=== PATIENT | female | born 1955 | race Caucasian/White ===

== ENCOUNTER 2019-12-22 09:57 | Emergency (ER) | payer MEDICARE, MEDICAID, SELFPAY ==
--- NOTE | ~2019-12-22 | XR_ITS ---
XR hip LT 2V w AP pelvis 12/22/2019 11:11 Indication: Status post fall. Hip pain. Procedure: AP view of the pelvis and 2 views left hip Comparison: No prior studies for comparison. Findings: Pelvic rings are intact. No fracture or traumatic malalignment. Sacral foramen are symmetri c. There are degenerative changes of the hips. Impression: 1: Mild osteoarthritis of the hips. Reviewed, dictated and finalized at location B. TURNER Impression: 1: Mild osteoarthritis of the hips.
--- NOTE | ~2019-12-22 | XR_ITS ---
XR hand LT min 3V 12/22/2019 11:11 Indication: Status post fall. Left hand pain. Procedure: 3 views left hand Comparison: No prior studies for comparison. Findings: Mild polyarticular osteoarthritis. Osteopenia. No acute fracture or traumatic malalignment. No focal soft tissue abnormality. No radiopaque foreign bodies. Impression: 1: No acute fracture. Reviewed, dictated and finalized at location B. MACEUTICAL SALES REPRESENTATIVE Impression: 1: No acute fracture.
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
--- NOTE | ~2019-12-22 | CT_ITS ---
EXAMINATION: CT cervical spine wo con DATE: 12/22/2019 10:47 INDICATION: Neck injury. TECHNIQUE: Computed tomography (CT) of the cervical spine was performed without intravenous contrast. Automated exposure control and iterative reconstruction technique were employed. The dose-length pro duct was 351.61 mGy-cm. COMPARISON: Brain MRI 03/28/2011, chest radiograph 10/30/13 FINDINGS: There is mild scarring at the lung apices. There is 5 degrees levocurvature of cervical spi ne. Vertebral body heights are normal. Intervertebral disc heights are normal. There is a chronic 7 m m lytic lesion in C2 vertebral body, likely a hemangioma. At C6 on the left, there is a 2.6 x 1.8 cm mass with associated expansile lytic change of the vertebral body, left pedicle, and left posterior e lements. The following disc levels are specifically discussed: C2-C3: There is mild right uncovertebral joint osteoarthritis. There is mild bilateral facet joint os teoarthritis. There is no neural foraminal stenosis. There is no central canal stenosis. C3-C4: There is mild bilateral uncovertebral joint osteoarthritis. There is mild left facet joint ost eoarthritis. There is no neural foraminal stenosis. There is no central canal stenosis. C4-C5: There is no uncovertebral joint osteoarthritis. There is mild left facet joint osteoarthritis. There is no neural foraminal stenosis. There is no central canal stenosis. C5-C6: There is mild right and severe left uncovertebral joint osteoarthritis. There is no facet join t osteoarthritis. There is moderate left neural foraminal stenosis. There is mild central canal steno sis. C6-C7: There is no uncovertebral joint osteoarthritis. There is no facet joint osteoarthritis. There is moderate left neural foraminal stenosis. There is no central canal stenosis. C7-T1: There is no uncovertebral joint osteoarthritis. There is mild right facet joint osteoarthritis . There is no neural foraminal stenosis. There is no central canal stenosis. IMPRESSION: 1. No fracture. 2. 2.6 cm mass involving the left C6 vertebral body, pedicle, and posterior elements, not included on prior imaging. The differential diagnosis includes peripheral nerve sheath tumor, metastatic disease , and plasmacytoma. I discussed this result with Dr. Solis on 12/22/19 at 11:20 AM. Reviewed, dictated and finalized at location A. LATION ENGINEER IMPRESSION: 1. No fracture. 2. 2.6 cm mass involving the left C6 vertebral body, pedicle, and posterior ying ments, not included on prior imaging. The differential diagnosis includes perip heral nerve sheath tumor, metastatic disease, and plasmacytoma. I discussed thi s result with Dr. Solis on 12/22/19 at 11:20 AM.
--- NOTE | ~2019-12-22 | XR_ITS ---
EXAMINATION: XR chest 2V 12/22/2019 11:11 INDICATION: Chest pain after fall PROCEDURE: 2 view chest COMPARISON: 10/30/2013 FINDINGS: The lungs are clear. Calcified granuloma left apex. The cardiomediastinal silhouette is wit hin normal limits. There are no pleural effusions. There is no pneumothorax suspected. IMPRESSION: 1: NO ACUTE CARDIOPULMONARY DISEASE. Reviewed, dictated and finalized at location B. ING REGULATION ENFORCEMENT OFFICER
--- NOTE | ~2019-12-22 | XR_ITS ---
XR knee LT min 4V 12/22/2019 11:11 Indication: Left knee pain after fall Procedure: 4 views left knee Comparison: No prior studies for comparison. Findings: No fracture, subluxation or dislocation. Mild osteoarthritis of the patellofemoral joint. N o significant joint effusion. No radiopaque foreign bodies. Impression: 1: No acute fracture.. Reviewed, dictated and finalized at location B. NOMIST Impression: 1: No acute fracture..
[2019-12-22 09:59] VITALS: BP 155/88; PULSE 57; RESP 20; TEMP 36.4
--- NOTE | 2019-12-22 10:18 | ED.FALL ---
HPI - Fall General Chief Complaint: Fall Stated Complaint: fall Time Seen by Provider: 12/22/19 10:18 Source: patient Mode of arrival: EMS Limitations: no limitations History of Present Illness HPI Narrative: Pt is a 64 y/o female, with a PMHx of MS, who presents to the ED, via EMS, from Assisted living, secondary to a fall. Pt states she fell walking around her bed this morning. She denies tripping/slipping or feeling lightheaded/dizzy. She also denies LOC and is unaware of how or why she fell. Pt reports nasal pain, lt wrist pain, and lt knee pain. She denies visual changes, N/V, CP, or SOB. She also denies any recent medicine changes or H/O UTI. complaint: fall Onset (ago): hour(s) (this morning) Fall from: standing Place fall occurred: skilled nursing/SNF Loss of consciousness: none Context: other (unknown) Location of injury: face (nose) Location of injury - extremities: Left: hand and knee Associated symptoms (after fall): other (nasal pain, lt wrist pain, lt knee pain) Related Data Allergies Allergy/AdvReac Type Severity Reaction Status Date / Time Sulfa (Sulfonamide Allergy Unknown Verified 12/08/13 11:06 Antibiotics) Review of Systems Review of Systems: Narrative: EYES: Denies visual changes. ENT: Reports nasal pain. CARDIOVASCULAR: Denies chest pain RESPIRATORY: Denies dyspnea. GASTROINTESTINAL: Denies abdominal pain, nausea, vomiting. MUSCULOSKELETAL: Reports lt wrist pain and lt knee pain NEUROLOGIC: Denies lightheadedness/dizziness, LOC All systems reviewed & are unremarkable except as noted in HPI and below PMFSH Past Medical History Medical History (Updated 12/22/19 @ 12:53 by Jayde Solis MD) Colon polyps Depression HLD (hyperlipidemia) IBS (irritable bowel syndrome) Multiple sclerosis Osteoporosis Psoriasis Surgical History Surgical History (Updated 12/22/19 @ 11:24 by Derek Bowman) H/O mastectomy H/O thyroidectomy H/O: hysterectomy Family History Family History (Updated 05/18/16 @ 23:19 by DOCTOR UNKNOWN) Mother Family history of diabetes mellitus in first degree relative Family history of malignant neoplasm of breast in first degree relative Father Hypertension Family history of coronary artery disease Other Family history of malignant neoplasm of breast Family history of malignant neoplasm of male breast Social History Social History Smoking status: Never smoker Alcohol intake: never Exam Narrative: Exam Narrative: GENERAL: Well-appearing, well-nourished, and in no acute distress. HEAD: Normocephalic, nasal bone ecchymosis, abrasion over nasal bone, no septal hematoma EYES: PERRLA and EOMI. ENT: Nares clear, no rhinorrhea or epistaxis. Mucous membranes moist. Nasal bridge abrasion. NECK: Supple. CHEST: Clear to auscultation. No respiratory distress. HEART: Regular rate and rhythm. No murmur heard. Normal peripheral pulses. ABDOMEN: Soft, nontender, nondistended, normal active bowel sounds. EXTREMITIES: Normal range of motion. Left hand ecchymosis with no deformity. Left knee subtle ecchymosis, small effusion left knee. Left patellar tenderness. Left hip tenderness. Pelvis stable. No pain with internal or external rotation. BACK/SPINE: No midline cervical tenderness. SKIN: Warm, dry, no rash. NEURO: No focal deficits. Alert and oriented X3. Course Course Emergency Course: Patient presented for evaluation after a fall. Patient has a abrasion over nasal bridge, no laceration. No occipital hematomas or lacerations. No cervical spine tenderness. She does have ecchymoses on her left hand, left hip and left knee tenderness but is moving all these joint spaces well without deficit. IV access obtained and labs are drawn. Laboratory results notable for urinary tract infection. The patient CT head is unremarkable for acute changes, the CT cervical spine shows a C6 mass, after reviewing the primary care physicia
--- NOTE | 2019-12-22 10:30 | ECG_ITS ---
Measurements Intervals [place] Rate: 57 P: 65 [place]: 157 QRS: 43 QRSD: 96 T: 54 QT: 437 QTc: 427 Interpretive Statements SINUS BRADYCARDIA LOW QRS VOLTAGE IN PRECORDIAL LEADS BASELINE ARTIFACT- V4 BORDERLINE ECG Electronically Signed On 12-22-2019 11:47:12 RUBBER GOODS FINISHER by Guy Colvin D.O.
--- NOTE | 2019-12-22 10:37 | PC.NURSE ---
Pt in CT and xray.
[2019-12-22] MEDS: SODIUM CHLORIDE 0.9% IV 1,000 ML 999 ML IV CONT (11:21)
[2019-12-22] MEDS: ONDANSETRON INJ 4 MG/2 ML VIAL IV PUSH (11:21)
[2019-12-22] MEDS: ACETAMINOPHEN 500 MG TABLET 1000 MG PO (11:22)
[2019-12-22 11:41] LABS: Basophils Percent Auto 0.4 % (0.2-1.2); Eosinophils Absolute Auto 0.1 K/mm3 (0-0.3); Eosinophils Percent Auto 0.9 % (0-4.4); Hematocrit 42.8 % (37.0-47.0); Hemoglobin 13.7 g/dL (12.0-15.0); Immature Granulocyte Absolute 0.04 K/mm3 (0.00-0.031); Immature Granulocyte Percent A 0.4 % (0-0.5); Lymphocytes Absolute Auto 2.02 K/mm3 (0.9-3.2); Lymphocytes Percent Auto 21.7 % (18.3-44.2); Mean Corpuscular Hemoglobin 28.7 pg (26-34); Mean Corpuscular Volume 89.7 fl (80-100); Mean Platelet Volume 11.2 fl (7.4-10.4); Monocytes Absolute Auto 0.7 K/mm3 (0.1-0.6); Monocytes Percent Auto 7.1 % (2.6-8.5); Neutrophils Absolute Auto 6.5 K/mm3 (1.3-6.7); Neutrophils Percent Auto 69.5 % (45.5-73.1); Platelet Count Result 256 k/mm3 (150-375); Red Blood Count 4.77 M/mm3 (4.2-5.4); Red Cell Distribution Width 12.6 % (11.5-14.5); White Blood Count 9.3 K/mm3 (4.5-10.0)
[2019-12-22 12:02] LABS: Blood Urea Nitrogen 12 mg/dL (7-17); Calcium 9.1 mg/dL (8.4-10.2); Carbon Dioxide 25 mmol/L (22-30); Chloride 106 mmol/L (98-107); Estimated CRCL calculation 60 ml/min; Estimated Glomerular Filt Rate > 60; Glucose 111 mg/dL (65-105); Potassium 4.4 mmol/L (3.4-5.0); Sodium 138 mmol/L (137-145)
--- NOTE | 2019-12-22 12:05 | PC.NURSE ---
Industrial Controller called for assistance with blue top collection.
[2019-12-22 12:13] LABS: Troponin I < 0.012 ng/mL (0.000-0.034)
[2019-12-22 12:27] LABS: Add Urine Microscopic? YES; Appearance Urine Cloudy (Clear); Bacteria Urine Trace /hpf; Bilirubin Urine Negative (Negative); Blood Urine 1+ (Negative); Color Urine Yellow (Yellow); Glucose Urine UA Negative (Negative); Ketones Urine Negative (Negative); Leukocyte Esterase Ur 3+ LEU/UL (Negative); Mucus Urine Few /lpf; Nitrate Urine Positive (Negative); Protein Urine Negative (Negative); Specific Grav Ur 1.011 (1.001-1.035); Squamous Epithelial Cell Urine Rare /hpf (Few); Urobilinogen Urine Negative mg/dL (<2.0); WBC Clumps Urine Present /HPF; WBC Urine >75 /hpf
--- NOTE | 2019-12-22 12:57 | PC.NURSE ---
2nd call to phlebotomy to draw blue top.
[2019-12-22 14:14] LABS: INR 0.9; Partial Thromboplastin Time 24.4 SECONDS (22.3-36.8); Prothrombin Time 12.2 Seconds (11.1-14.7)
== END 2019-12-22 13:44 ==
PROVIDERS: Emergency Provider Emergency Medicine
DX: S09.90XA Unspecified injury of head, initial encounter (principal); N39.0 Urinary tract infection, site not specified; G35 Multiple sclerosis; E78.5 Hyperlipidemia, unspecified; K58.9 Irritable bowel syndrome, unspecified; M81.0 Age-related osteoporosis without current pathological fracture; Z90.10 Acquired absence of unspecified breast and nipple; E89.0 Postprocedural hypothyroidism; R00.1 Bradycardia, unspecified; M89.9 Disorder of bone, unspecified; M16.0 Bilateral primary osteoarthritis of hip; W19.XXXA Unspecified fall, initial encounter
CPT/HCPCS: 36415; 70450; 71046; 72125; 73130; 73502; 73521; 73564; 80048; 81001; 84484; 85025; 85610; 85730; 87086; 87088; 93005; 96361; 96365; 96375; 99284; A9270; J0696; J2405; J7030

== ENCOUNTER → 2021-09-29 14:00 | Outpatient (CLI) | payer MEDICARE, SELFPAY ==
--- NOTE | ~2021-09-29 | MM_ITS ---
EXAMINATION: MM screening laura BI w fracisco HISTORY: Screening TECHNIQUE: Craniocaudal and mediolateral oblique 3-D tomosynthesis images were obtained and synthetic 2-D images were generated. CAD analysis was submitted and interpreted. COMPARISON: Comparison to multiple prior studies sequentially, with oldest reviewed study dated 01/2014. BREAST PARENCHYMAL COMPOSITION: Breast composed of scattered areas of fibroglandular density FINDINGS: There is no evidence of suspicious mass, calcification, or architectural distortion to sugg est malignancy in either breast. There has been no suspicious interval change. IMPRESSION: 1. No mammographic evidence of malignancy. 2. Recommend routine screening mammography in one year. BI-RADS Category 1: Negative Reviewed, dictated and finalized at location A. S FINISHER
== END ==
PROVIDERS: PCP Family Medicine; Visit Provider Family Medicine
DX: Z12.31 Encounter for screening mammogram for malignant neoplasm of breast (principal)
CPT/HCPCS: 77063; 77067

== ENCOUNTER → 2021-10-10 10:40 | Outpatient (CLI) | payer MEDICARE, SELFPAY ==
--- NOTE | ~2021-10-10 | DEXA_ITS ---
Bone Density Report Name: LEANNA BETH Age: 66 Sex: Female Ethnicity: White Date of : 1955 Indication: postmenopausal; screening for osteoporosis; hysterectomy; Referring Provider: SEDRICK, HENRIETTA Antoine Study: Bone densitometry was performed. Exam Date: October 10, 2021 Accession number: [id number] Bone Density: Region BMD T-score Z-score Classification AP Spine (L1-L4) 0.950 -0.9 1.1 Normal Femoral Neck (Left) 0.652 -1.8 -0.1 Osteopenia Total Hip (Left) 0.771 -1.4 0.0 Osteopenia Femoral Neck (Right) 0.667 -1.6 0.1 Osteopenia Total Hip (Right) 0.817 -1.0 0.4 Normal Total Hip Mean 0.794 -1.2 0.2 Osteopenia World Health Organization criteria for BMD impression classify patients as: Normal (T-score at or above -1.0), Osteopenia (T-score between -1.0 and -2.5), or Osteoporosis (T-score at or below -2.5). 10-year Fracture Risk(1): Major Osteoporotic Fracture 9.6% Hip Fracture 1.4% Reported Risk Factors: [place] (), Neck BMD=0.652, BMI=34.0 (1) FRAX(R) Version 3.08. Fracture probability calculated for an untreated patient. Fracture probability may be lower if the patient has received treatment. Previous Exams: Region Exam Age BMD T-score BMD Change BMD Change Date g/cm2 vs Baseline vs Previous AP Spine(L1-L4) 10/10/2021 66 0.950 -0.9 0.020 0.010 02/16/2019 63 0.940 -1.0 0.010 0.010 12/26/2016 61 0.930 -1.1 Total Hip(Left) 10/10/2021 66 0.771 -1.4 -0.060 -0.053 02/16/2019 63 0.824 -1.0 -0.007 -0.007 12/26/2016 61 0.831 -0.9 Total Hip(Right) 10/10/2021 66 0.817 -1.0 -0.073 -0.047 02/16/2019 63 0.865 -0.6 -0.025 -0.025 12/26/2016 61 0.890 -0.4 *Denotes significance at 95% confidence level, LSC for AP Spine = 0.022 g/cm2, LSC for Total Hip = 0.027 g/cm2 Clinical Information Provided by Patient: Has the following medical conditions: Hysterectomy Patient maximum height was 67 Menopause Age: 48 Drinks caffeinated beverages Onset of menses at age 9 Number of children 2 Impression: The patient has low bone mass, based on the Left Femoral Neck T-score. The patient has an estimated ten-year risk of hip fracture of 1.4% and an estimated ten-year risk of major fracture of 9.6%, based on the WHO FRAX algorithm. No significant bone loss was observed. Discussion: BONE DE
== END ==
PROVIDERS: PCP Family Medicine; Visit Provider Nurse Practitioner Family
DX: Z78.0 Asymptomatic menopausal state (principal); M85.89 Other specified disorders of bone density and structure, multiple sites
CPT/HCPCS: 77080